=== PATIENT | female | born 1980 | race Caucasian/White ===

== ENCOUNTER 2021-02-20 20:22 | Observation (INO) | payer MEDICARE, OTHER ==
[~2021-02-20] VITALS: Ht 167.6 cm; Wt 85.0 kg
--- NOTE | 2021-02-20 21:27 | NUR ---
UNABLE TO COMPLETE CLINICAL SCREEN AT THIS TIME PATIENT IS NOT ANSWERING THIS RNS QUESTIONS.
--- NOTE | 2021-02-20 21:53 | NUR ---
PATIENT REMAINS IN CT.
--- NOTE | 2021-02-20 21:57 | NUR ---
PATIENT HAS RETURNED FROM CT. CALL [facility] IN REACH. BED IN LOW POSITION. VSS. WILL CONTINUE TO MONITOR.
[2021-02-20 22:00] LABS: BASOPHILS % (AUTO) 1 % (0-1); EOSINOPHILS % (AUTO) 3 % (1-7); LYMPHOCYTES % (AUTO) 28 % (22-44); MEAN CORPUSCULAR HGB CONC 33.9 g/dL (32.4-35.8); MONOCYTES % (AUTO) 10 % (2-9); NEUTROPHILS % (AUTO) 59 % (42-75); PLATELET COUNT 120 x10^3/uL (130-400); RED BLOOD COUNT 3.65 x10^6/uL (3.82-5.3); RED CELL DISTRIBUTION WIDTH 14.6 % (9.6-15.2)
[2021-02-20 22:07] LABS: ALANINE AMINOTRANSFERASE 63 U/L (12-78); ALBUMIN 3.3 g/dL (3.4-5.0); ANION GAP 10 mmol/L (5-15); CALCIUM 8.4 mg/dL (8.5-10.1); CHLORIDE 108 mmol/L (98-107); CREATININE 0.96 mg/dL (0.55-1.02)
[2021-02-20 22:11] LABS: ALKALINE PHOSPHATASE 102 U/L (45-117); BILIRUBIN,TOTAL 0.2 mg/dL (0.2-1.0); TOTAL PROTEIN 7.8 g/dL (6.4-8.2)
--- NOTE | 2021-02-20 23:14 | NUR ---
ASSISTED PATIENT TO RESTROOM. VERY UNSTEADY GAIT. PATIENT BACK IN STRETCHER. VSS. WILL CONTINUE TO MONITOR.
--- NOTE | 2021-02-21 05:45 | NUR ---
ASSISTED PATIENT TO THE BATHROOM. PATIENT REMAINS UNSTEADY WITH C/O OF DIZZINESS.
--- NOTE | 2021-02-21 05:58 | NUR ---
PATIENT BACK IN STERTCHER WITH EYES CLOSED. NAD. CALL [facility] IN REACH. BED IN LOW POSITION. WILL CONTINUE TO MONITOR.
--- NOTE | 2021-02-21 06:24 | NUR ---
PATIENT PROVIDED WITH WATER REQUESTED.
--- NOTE | 2021-02-21 06:52 | NUR ---
REPORT TO GIVEN TO FREDDIE CONRAD
[2021-02-21] MEDS ORDERED: IBUPROFEN 200 MG TABLET PO ONE (07:00)
[2021-02-21] MEDS ORDERED: IBUPROFEN 800 MG TABLET ONE (07:01)
[2021-02-21] MEDS ORDERED: IBUPROFEN 200 MG TABLET ONE (07:05)
--- NOTE | 2021-02-21 08:01 | NUR ---
PT AMBUALTORY TO THR BR W/ A STEADY GAIT.
[2021-02-21 09:44] VITALS: BP 134/85
--- NOTE | 2021-02-21 09:45 | NUR ---
DR. CAPELLAN AT BEDSIDE REASSESING PT. PT REPORTS IMPROVEMENT OF SYMPTOMS.
[2021-02-21] MEDS ORDERED: ACETAMINOPHEN 500 MG TABLET ONE (09:49)
[2021-02-21] MEDS ORDERED: ACETAMINOPHEN 500 MG TABLET PO ONE (10:30)
== END 2021-02-21 10:06 | disposition home or self-care (01) ==
LOC: ED 02-21 01:42 → EDIP 02-21 02:00
PROVIDERS: ADMIT Student in an Organized Health Care Education/Training Program; ATTEND Student in an Organized Health Care Education/Training Program
DX: S06.0X9A Concussion with loss of consciousness of unspecified duration, initial encounter (principal); F10.120 Alcohol abuse with intoxication, uncomplicated; G31.2 Degeneration of nervous system due to alcohol; W08.XXXA Fall from other furniture, initial encounter; Y93.89 Activity, other specified; Y92.520 Airport as the place of occurrence of the external cause
CPT/HCPCS: 36415; 70450; 72125; 80053; 80320; 85025; 99285; G0378; G0480